=== PATIENT | female | born 1945 | race Caucasian/White ===

== ENCOUNTER 2023-10-30 08:15 | Emergency (ER) | payer MEDICARE ==
[2023-10-30] VITALS (12 sets, daily range): BP systolic 111–151; BP diastolic 49–90
[~2023-10-30] VITALS: Ht 162.6 cm; Wt 80.0 kg
[~2023-10-30 08:15] MED LIST: ACTONEL35 MG OR; ACTONEL35 MG PO; AMLODIPINE5 MG PO; ATORVASTATIN CA10 MG PO; AUGMENTIN875TAB PO; BENZONATATE200 MG PO; CALCIUM D- OR; CHILD ASA LS81 MG OR; CIPRO500 MG PO; D31000 UNI1 PO; FISH OIL1000 MG PO; FISH OIL1200 M1 OR; FLONASE NASAL50 MCG; FLUZONE SPLT1 M1 IM; HYDROCHLOROT12.5 MG PO; HYDROCHLOROT25 MG PO; LIPITOR40 MG OR; LIPITOR40 MG PO; LISINOPRIL10 MG PO; LISINOPRIL5 MG PO; METOPROLOL50 M1 OR; METOPROLOL50 M1 PO; MUCINEX600 MG PO; MULT1; MULT1 PO; NORVASC OR; RISEDRONATE SODIUM PO; VITAMIN D1000 UNI1 OR
[2023-10-30] MEDS ORDERED: SODIUM CHLORIDE 0.9% 1,000 ML IV STA (09:13)
[2023-10-30] MEDS ORDERED: ONDANSETRON HCl 4 MG/2 ML SDV IV STA (09:13)
[2023-10-30] MEDS ORDERED: KETOROLAC TROMETHAMINE 15 MG/ML SDV IV STA (09:13)
[2023-10-30 09:40] LABS: BASO% 0.3 % (0-3); EOS% 0.8 % (0-8); HEMATOCRIT 44.9 % (37.0-47.0); HEMOGLOBIN 14.7 g/dl (12.0-16.0); IMMATURE GRANULOCYTES 0.5 % (0.0-5.0); LYMPH% 23.8 % (15-41); MEAN CELL VOLUME 88.6 fL CALC (80.0-100.0); MEAN CORPUSCULAR HGB CONC 32.7 g/dL CAL (32.0-36.0); MONO% 6.8 % (2-13); NEUT# 5.07 thou/uL (2.00-7.15); NEUT% 67.8 % (42-76); RED BLOOD COUNT 5.07 mill/uL (4.20-5.60); RED CELL DISTRI WIDTH 12.9 % (11.5-15.5)
[2023-10-30 09:41] LABS: URINE BLOOD DIPSTICK Small (NEGATIVE); URINE GLUCOSE - DIPSTICK Negative (NEGATIVE); URINE KETONE 40 mg/dL (NEGATIVE); URINE LEUK ESTERASE Trace (NEGATIVE); URINE NITRITE - DIPSTICK Negative (Negative); URINE PH 5.5 (4.5-8.0); URINE PROTEIN - DIPSTICK Trace mg/dL (NEG-TRACE); URINE SPECIFIC GRAVITY >=1.030; URINE UROBILINOGEN - DIPSTICK 0.2 E.U./dL (0.2)
[2023-10-30 09:54] LABS: URINE COLOR Dark yellow
[2023-10-30 09:58] LABS: URINE BACTERIA FEW hpf; URINE MUCUS FEW hpf (NONE-FEW); URINE RBC 0-2 RBC/hpf (0-5); URINE SQUAMOUS EPITHELIAL CELL FEW EPI/hpf (0-FEW)
[2023-10-30 09:59] LABS: URINE HYALINE CAST FEW lpf (NONE-RARE)
[2023-10-30 10:20] LABS: ALBUMIN 4.3 g/dL (3.2-5.0); ALKALINE PHOSPHATASE 72 u/l (38-126); ANION GAP 11 (6-22 (CALC)); BUN 16 mg/dL (8-23); BUN/CREATININE RATIO 19 (12-20 (CALC)); CARBON DIOXIDE 25 mmol/l (22-30); CHLORIDE 105 mmol/l (95-108); CREATININE 0.8 mg/dL (0.5-1.0); GFR FOR AFR.AMER. > 60 ML/MIN (>=60 (CALC)); GFR OTHER RACES > 60 ML/MIN (>=60 (CALC)); LIPASE 122 u/l (23-300); POTASSIUM 3.7 mmol/l (3.5-5.1); SGOT/AST 44 u/l (9-36); SODIUM 138 mmol/l (137-146)
[2023-10-30] MEDS ORDERED: KEFLEX500 MG PO (12:38)
== END 2023-10-30 13:07 | disposition home or self-care (01) ==
LOC: ED 08:15
PROVIDERS: Emergency Medicine
DX: N39.0 Urinary tract infection, site not specified (principal); B96.20 Unspecified Escherichia coli [E. coli] as the cause of diseases classified elsewhere; I10 Essential (primary) hypertension
CPT/HCPCS: Q9967